=== PATIENT | female | born 1990 | race Caucasian/White ===

== ENCOUNTER 2019-11-22 17:53 | Emergency (ER) | payer MEDICAID ==
[~2019-11-22] VITALS: Ht 165.1 cm; Wt 53.1 kg
[2019-11-22 17:59] VITALS: Ht 165.1 cm; Wt 53.1 kg
[2019-11-22 18:20] VITALS: BP 120/76
== END 2019-11-22 18:20 | disposition home or self-care (01) ==
LOC: ED 17:53
DX: J06.9 Acute upper respiratory infection, unspecified (principal)
CPT/HCPCS: 87804